=== PATIENT | male | born 1935 | race Caucasian/White ===

== ENCOUNTER 2017-06-26 10:11 | Inpatient (IN) | payer OTHER ==
[~2017-06-26] VITALS: Ht 172.7 cm; Wt 64.2 kg
[~2017-06-26 10:11] MED LIST: GLUCOPHAGE1000 MG PO; LISINOPRIL5 MG PO; ZYLOPRIM100 MG PO
[2017-06-26 10:59] LABS: MCH 30.9 PG (29.0-34.0); MCHC 34.2 G/DL (30.0-36.0); MCV 90.5 FL (86-99); MEAN PLAT.VOLUME 9.9 uM^3 (9.0-12.4); RBC DIS.WIDTH-CV 11.8 % (11.8-14.6); RBC DIS.WIDTH-SD 38.9 % (39-53); RED BLOOD COUNT 3.98 M/uL (4.00-5.50); WHITE BLOOD COUNT 8.8 K/uL (4.1-10.2)
[2017-06-26 11:07] LABS: CHLORIDE 99 mEq/L (99-109); POTASSIUM 5.1 mEq/L (3.7-5.4); SODIUM 132 mEq/L (136-147)
[2017-06-26 11:10] LABS: GLUCOSE 267 mg/dL (70-99)
[2017-06-26 11:11] LABS: ANION GAP 16 MEQ/L (2-14)
[2017-06-26 11:12] LABS: TOTAL BILIRUBIN 2.3 mg/dL (0.0-1.0)
[2017-06-26 11:13] LABS: ALKALINE PHOSPHATASE 74 IU/L (3-129); GFR ESTIMATE (CALCULATED) 24 mL/min/
[2017-06-26 11:14] LABS: UREA NITROGEN (BUN) 49 mg/dL (9-23)
[2017-06-26 11:17] LABS: LIPASE 12 U/L (1.0-51.0)
[2017-06-26 11:44] LABS: ABS NEUTROPHIL COUNT 7.5; ATYPICAL LYMPHOCYTE 0.9 %; BAND NEUTROPHILS 26.9 % (0-8.0); EOSINOPHIL ABS CT 0; INSTRUMENT ABS NEUTROPHIL CT 6.9 K/uL; LYMPHOCYTES 6.1 % (15.0-45.0); PLAT.SUFFICIENCY ADEQUATE; SEG.NEUTROPHILS 58.3 % (46.0-76.0)
[2017-06-26 12:43] LABS: TROP-I INTERPRETATION NEGATIVE
[2017-06-26] MEDS ORDERED: VITAMIN D31000 UNIT PO (12:50)
[2017-06-26] MEDS ORDERED: THERAPEUTIC M PO (12:51)
[2017-06-26] MEDS ORDERED: GLIPIZIDE ER2.5 MG PO (12:52)
[2017-06-26] MEDS ORDERED: RANITIDINE HCL150 MG PO (13:35)
[2017-06-26 16:01] LABS: ADD MIUA? YES; BILIRUBIN NEGATIVE; BLOOD SMALL; COLOR YELLOW ((YELLOW)); GLUCOSE (STRIP) 50; KETONES 5; LEUKOCYTES NEGATIVE; NITRITE NEGATIVE; PROTEIN (STRIP) 30; SPECIFIC GRAVITY 1.014 (1.000-1.030); UROBILINOGEN 0.2 MG/DL (0.2-1.0)
[2017-06-26 16:22] LABS: EPITHELIAL CELLS RARE /HPF; RED BLOOD CELLS RARE /HPF (0-5); WHITE BLOOD CELLS NONE SEEN /HPF (0-5)
[2017-06-26 16:23] LABS: BACTERIA RARE /HPF; MUCUS NONE SEEN /LPF; UCUL ADDED? NO
[2017-06-26 16:45] VITALS: BP 143/85
[2017-06-26 16:50] VITALS: BP 143/85
[2017-06-26 18:13] LABS: POINT-OF-CARE METER ID UU14174216
[2017-06-26 18:57] LABS: TROP-I INTERPRETATION NEGATIVE; TROPONIN-I 0.18 ng/mL (0.0-0.30)
[2017-06-26 20:09] VITALS: BP 144/58
[2017-06-26 21:41] LABS: POINT-OF-CARE METER ID UU13113781
[2017-06-27] VITALS (7 sets, daily range): BP systolic 127–159; BP diastolic 54–71
[2017-06-27 01:56] LABS: TROP-I INTERPRETATION NEGATIVE; TROPONIN-I 0.12 ng/mL (0.0-0.30)
[2017-06-27 07:23] LABS: HEMATOCRIT 30.9 % (38.0-50.0); MCH 30.1 PG (29.0-34.0); MCHC 32.7 G/DL (30.0-36.0); MCV 92.2 FL (86-99); MEAN PLAT.VOLUME 10.1 uM^3 (9.0-12.4); PLATELET COUNT 219 K/uL (156-360); RBC DIS.WIDTH-CV 12.2 % (11.8-14.6); RBC DIS.WIDTH-SD 41.4 % (39-53); RED BLOOD COUNT 3.35 M/uL (4.00-5.50); WHITE BLOOD COUNT 10.2 K/uL (4.1-10.2)
[2017-06-27 07:49] LABS: POINT-OF-CARE METER ID UU13113781
[2017-06-27 08:46] LABS: ALKALINE PHOSPHATASE 56 IU/L (3-129); ANION GAP 14 MEQ/L (2-14); CHLORIDE 111 MEQ/L (99-109); GLUCOSE 229 mg/dL (70-99); SAMPLE HEMOLYSIS CHECK 0; SAMPLE ICTERIC CHECK 0; SAMPLE LIPEMIA CHECK 0; SODIUM 138 MEQ/L (136-147); TOTAL BILIRUBIN 0.8 MG/DL (0.0-1.0); UREA NITROGEN (BUN) 45 mg/dL (9-23)
[2017-06-27 08:47] LABS: GFR ESTIMATE (CALCULATED) 44 mL/min/; POTASSIUM 3.9 MEQ/L (3.7-5.4)
[2017-06-27 11:06] LABS: POINT-OF-CARE METER ID UU13113781
[2017-06-27 15:13] LABS: ANION GAP 9 MEQ/L (2-14); CHLORIDE 112 MEQ/L (99-109); POTASSIUM 3.5 MEQ/L (3.7-5.4); SAMPLE HEMOLYSIS CHECK 0; SAMPLE ICTERIC CHECK 0; SAMPLE LIPEMIA CHECK 0; SODIUM 139 MEQ/L (136-147)
[2017-06-27 15:18] LABS: GFR ESTIMATE (CALCULATED) 48 mL/min/; GLUCOSE 270 mg/dL (70-99); UREA NITROGEN (BUN) 45 mg/dL (9-23)
[2017-06-27 16:03] LABS: POINT-OF-CARE METER ID UU13113698
[2017-06-27 21:04] LABS: POINT-OF-CARE METER ID UU13113698
[2017-06-28] VITALS (7 sets, daily range): BP systolic 151–177; BP diastolic 69–77
[2017-06-28 05:52] LABS: EOSINOPHIL (%) 0 % (0-5); HEMATOCRIT 28.3 % (38.0-50.0); IMMATURE GRANULOCYTE (%) 0.8 % (0.0-0.7); IMMATURE GRANULOCYTE COUNT 0.1 K/uL; INSTRUMENT ABS NEUTROPHIL CT 7.3 K/uL; LYMPHOCYTE COUNT 0.6 K/uL (1.0-2.8); MCH 30.9 PG (29.0-34.0); MCHC 34.3 G/DL (30.0-36.0); MCV 90.1 FL (86-99); MEAN PLAT.VOLUME 10.2 uM^3 (9.0-12.4); MONOCYTE (%) 9.8 % (3-12); MONOCYTE COUNT 0.9 K/uL (0-0.8); NEUTROPHIL (%) 82.5 % (45-76); NEUTROPHIL COUNT 7.3 K/uL (1.8-6.4); PLATELET COUNT 217 K/uL (156-360); RBC DIS.WIDTH-CV 12.1 % (11.8-14.6); RBC DIS.WIDTH-SD 39.9 % (39-53); RED BLOOD COUNT 3.14 M/uL (4.00-5.50); WHITE BLOOD COUNT 8.9 K/uL (4.1-10.2)
[2017-06-28 06:23] LABS: ALKALINE PHOSPHATASE 65 IU/L (3-129); ANION GAP 11 MEQ/L (2-14); CHLORIDE 111 MEQ/L (99-109); GFR ESTIMATE (CALCULATED) 56 mL/min/; GLUCOSE 225 mg/dL (70-99); POTASSIUM 3.3 MEQ/L (3.7-5.4); SAMPLE HEMOLYSIS CHECK 0; SAMPLE ICTERIC CHECK 0; SAMPLE LIPEMIA CHECK 0; SODIUM 141 MEQ/L (136-147); UREA NITROGEN (BUN) 38 mg/dL (9-23)
[2017-06-28 06:24] LABS: TOTAL BILIRUBIN 0.5 MG/DL (0.0-1.0)
[2017-06-28 08:09] LABS: POINT-OF-CARE METER ID UU13113698; POINT-OF-CARE USER ID NUTSLF44
[2017-06-28 12:17] LABS: POINT-OF-CARE METER ID UU13113698; POINT-OF-CARE USER ID NUTSLF44
[2017-06-28 16:15] LABS: POINT-OF-CARE METER ID UU13113698; POINT-OF-CARE USER ID NUTSLF44
[2017-06-28 21:15] LABS: POINT-OF-CARE METER ID UU14174216
[2017-06-29 03:55] VITALS: BP 167/74
[2017-06-29 05:51] LABS: HEMATOCRIT 27.6 % (38.0-50.0); MCH 31.7 PG (29.0-34.0); MCHC 35.1 G/DL (30.0-36.0); MCV 90.2 FL (86-99); MEAN PLAT.VOLUME 10.3 uM^3 (9.0-12.4); PLATELET COUNT 209 K/uL (156-360); RBC DIS.WIDTH-CV 12.5 % (11.8-14.6); RBC DIS.WIDTH-SD 41.3 % (39-53); RED BLOOD COUNT 3.06 M/uL (4.00-5.50); WHITE BLOOD COUNT 10.1 K/uL (4.1-10.2)
[2017-06-29 06:25] LABS: ANION GAP 10 MEQ/L (2-14); CHLORIDE 107 MEQ/L (99-109); GFR ESTIMATE (CALCULATED) > 59 mL/min/; GLUCOSE 166 mg/dL (70-99); POTASSIUM 3.3 MEQ/L (3.7-5.4); SAMPLE HEMOLYSIS CHECK 0; SAMPLE ICTERIC CHECK 0; SAMPLE LIPEMIA CHECK 0; SODIUM 139 MEQ/L (136-147); UREA NITROGEN (BUN) 32 mg/dL (9-23)
[2017-06-29 07:01] LABS: ATYPICAL LYMPHOCYTE 0.9 %; BAND NEUTROPHILS 7.8 % (0-8.0); EOSINOPHIL ABS CT 0; LYMPHOCYTES 4.4 % (15.0-45.0); PLAT.SUFFICIENCY ADEQUATE
[2017-06-29 07:25] VITALS: BP 157/70
[2017-06-29 07:47] LABS: SEG.NEUTROPHILS 81.7 % (46.0-76.0)
[2017-06-29 07:51] LABS: POINT-OF-CARE METER ID UU13113781
[2017-06-29 11:12] VITALS: BP 131/63
[2017-06-29 11:50] LABS: POINT-OF-CARE METER ID UU14174216
[2017-06-29 16:15] VITALS: BP 158/68
[2017-06-29 17:17] LABS: POINT-OF-CARE METER ID UU14174216
[2017-06-29 19:00] VITALS: BP 166/75
[2017-06-29 20:43] LABS: POINT-OF-CARE METER ID UU13113698
[2017-06-30] VITALS: BP 133/61
[2017-06-30 03:55] VITALS: BP 150/68
[2017-06-30 05:22] LABS: HEMATOCRIT 30.9 % (38.0-50.0); MCH 29.6 PG (29.0-34.0); MCHC 32.7 G/DL (30.0-36.0); MCV 90.6 FL (86-99); MEAN PLAT.VOLUME 10.2 uM^3 (9.0-12.4); PLATELET COUNT 254 K/uL (156-360); RBC DIS.WIDTH-CV 12.5 % (11.8-14.6); RBC DIS.WIDTH-SD 41.4 % (39-53); RED BLOOD COUNT 3.41 M/uL (4.00-5.50); WHITE BLOOD COUNT 13.4 K/uL (4.1-10.2)
[2017-06-30 05:47] LABS: ANION GAP 11 MEQ/L (2-14); CHLORIDE 106 MEQ/L (99-109); GFR ESTIMATE (CALCULATED) 56 mL/min/; GLUCOSE 172 mg/dL (70-99); POTASSIUM 3.6 MEQ/L (3.7-5.4); SAMPLE HEMOLYSIS CHECK 0; SAMPLE ICTERIC CHECK 0; SAMPLE LIPEMIA CHECK 0; SODIUM 141 MEQ/L (136-147); UREA NITROGEN (BUN) 29 mg/dL (9-23)
[2017-06-30 06:22] LABS: EOSINOPHIL (%) 0.7 % (0-5); EOSINOPHIL COUNT 0.1 K/uL (0-0.3); IMMATURE GRANULOCYTE COUNT 0.1 K/uL; INSTRUMENT ABS NEUTROPHIL CT 10.4 K/uL; LYMPHOCYTE COUNT 1.6 K/uL (1.0-2.8); MONOCYTE (%) 9.1 % (3-12); MONOCYTE COUNT 1.2 K/uL (0-0.8); NEUTROPHIL (%) 77.5 % (45-76); NEUTROPHIL COUNT 10.4 K/uL (1.8-6.4); PLAT.SUFFICIENCY ADEQUATE
[2017-06-30 08:15] LABS: POINT-OF-CARE METER ID UU13113698; POINT-OF-CARE USER ID NUTSLF44
[2017-06-30 11:53] LABS: POINT-OF-CARE METER ID UU13113698; POINT-OF-CARE USER ID NUTSLF44
[2017-06-30 12:23] VITALS: BP 151/67
[2017-06-30 17:18] VITALS: BP 139/65
[2017-06-30 17:34] LABS: POINT-OF-CARE METER ID UU14174216; POINT-OF-CARE USER ID NUTSLF44
[2017-06-30 19:34] VITALS: BP 131/62
[2017-06-30 21:08] LABS: POINT-OF-CARE METER ID UU14174216
[2017-06-30 23:24] VITALS: BP 133/61
[2017-07-01 03:41] VITALS: BP 143/67
[2017-07-01 05:36] LABS: HEMATOCRIT 31.6 % (38.0-50.0); MCH 30.2 PG (29.0-34.0); MCHC 33.5 G/DL (30.0-36.0); MEAN PLAT.VOLUME 10.2 uM^3 (9.0-12.4); PLATELET COUNT 293 K/uL (156-360); RBC DIS.WIDTH-CV 12.6 % (11.8-14.6); RBC DIS.WIDTH-SD 41.1 % (39-53); RED BLOOD COUNT 3.51 M/uL (4.00-5.50); WHITE BLOOD COUNT 15.6 K/uL (4.1-10.2)
[2017-07-01 06:00] LABS: ANION GAP 9 MEQ/L (2-14); CHLORIDE 104 MEQ/L (99-109); GFR ESTIMATE (CALCULATED) 56 mL/min/; GLUCOSE 167 mg/dL (70-99); POTASSIUM 3.6 MEQ/L (3.7-5.4); SAMPLE HEMOLYSIS CHECK 0; SAMPLE ICTERIC CHECK 0; SAMPLE LIPEMIA CHECK 0; SODIUM 138 MEQ/L (136-147); UREA NITROGEN (BUN) 22 mg/dL (9-23)
[2017-07-01 06:52] LABS: ABS NEUTROPHIL COUNT 12.5; ATYPICAL LYMPHOCYTE 2.7 %; EOSINOPHIL ABS CT 0.1; EOSINOPHILS 0.9 % (0-5.0); INSTRUMENT ABS NEUTROPHIL CT 11.5 K/uL; LYMPHOCYTES 7.3 % (15.0-45.0); MYELOCYTES 1.8 %; SMUDGE CELLS 4.5
[2017-07-01 07:45] VITALS: BP 155/71
[2017-07-01 07:51] LABS: POINT-OF-CARE METER ID UU13113781
[2017-07-01 11:32] LABS: POINT-OF-CARE METER ID UU13113781
[2017-07-01 11:46] VITALS: BP 116/60
[2017-07-01 13:24] LABS: C DIFF TOXIN NEGATIVE (NEGATIVE); PROBE CHECK PASS; SPECIMEN PROCESSING CONTROL PASS
[2017-07-01 15:59] VITALS: BP 143/67
[2017-07-01 16:30] LABS: POINT-OF-CARE METER ID UU14174216
[2017-07-01 16:31] LABS: POINT-OF-CARE METER ID UU13113781
[2017-07-01 19:09] VITALS: BP 140/70
[2017-07-01 21:05] LABS: POINT-OF-CARE METER ID UU13113698
[2017-07-01 23:46] VITALS: BP 129/68
[2017-07-02 03:50] VITALS: BP 161/71
[2017-07-02 05:35] LABS: EOSINOPHIL (%) 1.3 % (0-5); EOSINOPHIL COUNT 0.2 K/uL (0-0.3); HEMATOCRIT 30.6 % (38.0-50.0); IMMATURE GRANULOCYTE (%) 3.9 % (0.0-0.7); IMMATURE GRANULOCYTE COUNT 0.5 K/uL; INSTRUMENT ABS NEUTROPHIL CT 8.9 K/uL; LYMPHOCYTE COUNT 1.6 K/uL (1.0-2.8); MCH 29.8 PG (29.0-34.0); MCV 90.3 FL (86-99); MEAN PLAT.VOLUME 10.4 uM^3 (9.0-12.4); MONOCYTE (%) 11.4 % (3-12); MONOCYTE COUNT 1.4 K/uL (0-0.8); NEUTROPHIL (%) 70.1 % (45-76); NEUTROPHIL COUNT 8.9 K/uL (1.8-6.4); PLATELET COUNT 248 K/uL (156-360); RBC DIS.WIDTH-CV 12.5 % (11.8-14.6); RBC DIS.WIDTH-SD 41.7 % (39-53); RED BLOOD COUNT 3.39 M/uL (4.00-5.50); WHITE BLOOD COUNT 12.6 K/uL (4.1-10.2)
[2017-07-02 05:54] LABS: ANION GAP 12 MEQ/L (2-14); CHLORIDE 103 MEQ/L (99-109); GFR ESTIMATE (CALCULATED) > 59 mL/min/; GLUCOSE 143 mg/dL (70-99); SAMPLE HEMOLYSIS CHECK 0; SAMPLE ICTERIC CHECK 0; SAMPLE LIPEMIA CHECK 0; SODIUM 139 MEQ/L (136-147); UREA NITROGEN (BUN) 19 mg/dL (9-23)
[2017-07-02 07:41] LABS: POINT-OF-CARE METER ID UU13113781
[2017-07-02 07:59] VITALS: BP 154/64
[2017-07-02 11:49] LABS: POINT-OF-CARE METER ID UU13113698
[2017-07-02 12:44] VITALS: BP 153/64
[2017-07-02 16:17] VITALS: BP 135/63
[2017-07-02 16:23] LABS: POINT-OF-CARE METER ID UU13113781
[2017-07-02 19:10] VITALS: BP 143/63
[2017-07-02 22:08] LABS: POINT-OF-CARE METER ID UU13113698
[2017-07-02 23:56] VITALS: BP 132/62
[2017-07-03 03:50] VITALS: BP 135/63
[2017-07-03 05:26] LABS: HEMATOCRIT 30.6 % (38.0-50.0); MCH 30.7 PG (29.0-34.0); MCHC 33.7 G/DL (30.0-36.0); MCV 91.1 FL (86-99); MEAN PLAT.VOLUME 10.2 uM^3 (9.0-12.4); PLATELET COUNT 266 K/uL (156-360); RBC DIS.WIDTH-CV 12.8 % (11.8-14.6); RBC DIS.WIDTH-SD 42.8 % (39-53); RED BLOOD COUNT 3.36 M/uL (4.00-5.50); WHITE BLOOD COUNT 10.8 K/uL (4.1-10.2)
[2017-07-03 06:03] LABS: ANION GAP 11 MEQ/L (2-14); CHLORIDE 101 MEQ/L (99-109); GFR ESTIMATE (CALCULATED) 51 mL/min/; GLUCOSE 159 mg/dL (70-99); POTASSIUM 3.8 MEQ/L (3.7-5.4); SAMPLE HEMOLYSIS CHECK 0; SAMPLE ICTERIC CHECK 0; SAMPLE LIPEMIA CHECK 0; SODIUM 137 MEQ/L (136-147); UREA NITROGEN (BUN) 16 mg/dL (9-23)
[2017-07-03 06:56] LABS: ABS NEUTROPHIL COUNT 7.4; EOSINOPHIL ABS CT 0.1; EOSINOPHILS 0.9 % (0-5.0); INSTRUMENT ABS NEUTROPHIL CT 7.2 K/uL; LYMPHOCYTES 14.1 % (15.0-45.0); METAMYELOCYTES 3.5 %; MYELOCYTES 2.6 %; PLAT.SUFFICIENCY ADEQUATE; SEG.NEUTROPHILS 68.4 % (46.0-76.0)
[2017-07-03 08:00] VITALS: BP 130/63
[2017-07-03 08:06] LABS: POINT-OF-CARE METER ID UU13113781
[2017-07-03 11:26] LABS: POINT-OF-CARE METER ID UU13113781
[2017-07-03 11:51] VITALS: BP 131/61
[2017-07-03 16:00] VITALS: BP 133/64
[2017-07-03 16:32] LABS: POINT-OF-CARE METER ID UU13113781
[2017-07-03 19:11] VITALS: BP 111/55
[2017-07-03 21:33] LABS: POINT-OF-CARE METER ID UU13113781
[2017-07-03 23:28] VITALS: BP 119/66
[2017-07-04 04:58] VITALS: BP 118/59
[2017-07-04 05:26] LABS: EOSINOPHIL (%) 2.1 % (0-5); EOSINOPHIL COUNT 0.2 K/uL (0-0.3); HEMATOCRIT 28.5 % (38.0-50.0); IMMATURE GRANULOCYTE (%) 4.1 % (0.0-0.7); IMMATURE GRANULOCYTE COUNT 0.4 K/uL; INSTRUMENT ABS NEUTROPHIL CT 7.3 K/uL; LYMPHOCYTE COUNT 1.4 K/uL (1.0-2.8); MCH 29.6 PG (29.0-34.0); MCHC 32.6 G/DL (30.0-36.0); MCV 90.8 FL (86-99); MONOCYTE (%) 10.2 % (3-12); MONOCYTE COUNT 1.1 K/uL (0-0.8); NEUTROPHIL (%) 69.8 % (45-76); NEUTROPHIL COUNT 7.3 K/uL (1.8-6.4); PLATELET COUNT 275 K/uL (156-360); RBC DIS.WIDTH-CV 12.7 % (11.8-14.6); RBC DIS.WIDTH-SD 41.5 % (39-53); RED BLOOD COUNT 3.14 M/uL (4.00-5.50); WHITE BLOOD COUNT 10.4 K/uL (4.1-10.2)
[2017-07-04 07:00] VITALS: BP 129/60
[2017-07-04 07:35] LABS: POINT-OF-CARE METER ID UU13113781
[2017-07-04 11:15] VITALS: BP 132/63
[2017-07-04 11:30] LABS: POINT-OF-CARE METER ID UU13113781
[2017-07-04 15:15] VITALS: BP 118/76
[2017-07-04 17:00] LABS: POINT-OF-CARE METER ID UU14174216
[2017-07-04 19:42] VITALS: BP 122/58
[2017-07-04 21:41] LABS: POINT-OF-CARE METER ID UU13113698
[2017-07-04 23:48] VITALS: BP 118/85
[2017-07-05 03:20] VITALS: BP 132/63
[2017-07-05 05:44] LABS: EOSINOPHIL (%) 2.1 % (0-5); EOSINOPHIL COUNT 0.2 K/uL (0-0.3); IMMATURE GRANULOCYTE (%) 3.2 % (0.0-0.7); IMMATURE GRANULOCYTE COUNT 0.3 K/uL; INSTRUMENT ABS NEUTROPHIL CT 7.2 K/uL; LYMPHOCYTE COUNT 1.2 K/uL (1.0-2.8); MCH 30.8 PG (29.0-34.0); MCHC 33.4 G/DL (30.0-36.0); MCV 92.1 FL (86-99); MEAN PLAT.VOLUME 10.6 uM^3 (9.0-12.4); MONOCYTE (%) 8.6 % (3-12); MONOCYTE COUNT 0.8 K/uL (0-0.8); NEUTROPHIL (%) 74.1 % (45-76); NEUTROPHIL COUNT 7.2 K/uL (1.8-6.4); PLATELET COUNT 292 K/uL (156-360); RBC DIS.WIDTH-CV 12.9 % (11.8-14.6); RBC DIS.WIDTH-SD 42.9 % (39-53); RED BLOOD COUNT 3.15 M/uL (4.00-5.50); WHITE BLOOD COUNT 9.7 K/uL (4.1-10.2)
[2017-07-05 06:03] LABS: ANION GAP 8 MEQ/L (2-14); CHLORIDE 105 MEQ/L (99-109); GFR ESTIMATE (CALCULATED) 48 mL/min/; GLUCOSE 174 mg/dL (70-99); POTASSIUM 4.1 MEQ/L (3.7-5.4); SAMPLE HEMOLYSIS CHECK 0; SAMPLE ICTERIC CHECK 0; SAMPLE LIPEMIA CHECK 0; SODIUM 138 MEQ/L (136-147); UREA NITROGEN (BUN) 12 mg/dL (9-23)
[2017-07-05 07:22] VITALS: BP 115/55
[2017-07-05 07:36] LABS: POINT-OF-CARE METER ID UU13113698; POINT-OF-CARE USER ID NUTSLF44
[2017-07-05 11:31] LABS: POINT-OF-CARE METER ID UU14174216
[2017-07-05 11:53] VITALS: BP 115/54
[2017-07-05 15:41] VITALS: BP 111/63
[2017-07-05 16:11] LABS: POINT-OF-CARE METER ID UU14174216; POINT-OF-CARE USER ID 515034806
[2017-07-05] MEDS ORDERED: FLORASTOR250 MG PO (17:17)
[2017-07-05] MEDS ORDERED: CEFTRIAXONE2 G1 IV (17:21)
[2017-07-05] MEDS ORDERED: FLAGYL500 MG PO (17:21)
== END 2017-07-05 19:00 | disposition home health service (06) | DRG 871 ==
LOC: EME → EDBD 10:11 → 4EAST 14:27 → EDOF 14:27 → ENRESERV 14:34 → EDOF 14:45 → ENRESERV 15:05 → 4EAST 16:37
PROVIDERS: Emergency Medicine; Hospitalist; Internal Medicine Cardiovascular Disease; Physician Assistant; Physician Assistant Surgical; Student in an Organized Health Care Education/Training Program; Surgery
DX: A41.89 Other specified sepsis (principal); K35.3 Acute appendicitis with localized peritonitis; I48.0 Paroxysmal atrial fibrillation; N17.9 Acute kidney failure, unspecified; R65.20 Severe sepsis without septic shock; K56.690 Other partial intestinal obstruction; K56.7 Ileus, unspecified; E87.2 Acidosis; E86.0 Dehydration; E87.1 Hypo-osmolality and hyponatremia; E83.42 Hypomagnesemia; I27.20 Pulmonary hypertension, unspecified; I08.1 Rheumatic disorders of both mitral and tricuspid valves; E87.6 Hypokalemia; I10 Essential (primary) hypertension; E11.9 Type 2 diabetes mellitus without complications; M10.9 Gout, unspecified; Z66 Do not resuscitate
CPT/HCPCS: 74000; 74176; 74177; 80048; 80048 91; 80053; 81003; 82948; 83605; 83690; 83735; 84484; 85025; 85027; 87040; 87076; 87185; 87493; 87801; 93005; 93306; 97530 GO; 99281; 99285; J0692; J1644; J1815; J2543; J3010; J3475; J3480; J7030; J7040; J7050; S0030